=== PATIENT | female | born 1955 | race Caucasian/White ===

== ENCOUNTER 2020-07-13 21:58 | Emergency (ER) | payer MEDICAID ==
[~2020-07-13] VITALS: Ht 167.6 cm; Wt 71.2 kg
[2020-07-13 22:21] VITALS: BP 147/89; Ht 167.6 cm; Wt 71.2 kg
== END 2020-07-14 00:40 | disposition home or self-care (01) ==
LOC: ED 21:58
DX: M25.512 Pain in left shoulder (principal); Z90.710 Acquired absence of both cervix and uterus; W01.0XXA Fall on same level from slipping, tripping and stumbling without subsequent striking against object, initial encounter; Y93.89 Activity, other specified; Y92.89 Other specified places as the place of occurrence of the external cause; Y99.8 Other external cause status